=== PATIENT | female | born 1935 | race Caucasian/White ===

== ENCOUNTER 2017-12-01 08:05 | Emergency (ER) | payer MEDICARE ==
[2017-12-01 08:18] VITALS: BP 167/77
--- NOTE | 2017-12-01 09:41 | UC ---
Complaint Female HPI - HPI Summary HPI Summary: In Room Note: The patient is an 82 y/o F presenting to [facility] with a chief complaint of mild dysuria with a warm, burning sensation starting yesterday. She denies fever, suprapubic pain, and back pain. She has had UTIs before, and this feels similar. She reports and overactive bladder, GERD, and HTN for which she takes medication but hasn't taken it yet today. She has not had any hospitalizations including for heart, lungs, or liver. She is allergic to penicillin. Note: Vital signs stable: 167/77 BP, Pulse Ox 100%, Afebrile. Visit history: noncontributory to present complaint. Hx of HTN but did not take medication today. Allergic to penicillin. Nurse's Note: urinary frequency and slight burning with urination. afebrile. Starting last night. - History Of Current Complaint Chief Complaint: UCGU Stated Complaint: PAIN W/ URINATION Time Seen by Provider: 12/01/17 08:28 Hx Obtained From: Patient ?: No Onset/Duration: Sudden Onset Timing: Lasting Hours - starting last night Severity Initially: Mild Severity Currently: Mild Pain Intensity: 0 Pain Scale Used: 0-10 Numeric Character: Burning - and warmness Aggravating Factor(s): Urination Alleviating Factor(s): Nothing Associated Signs And Symptoms: Negative: Fever, Back Pain - Allergies/Home Medications Allergies/Adverse Reactions: Allergies Allergy/AdvReac Type Severity Reaction Status Date / Time Penicillins Allergy Rash Verified 12/01/17 08:18 Home Medications: Home Medications Atenolol [Tenormin 100 MG] 100 mg PO DAILY 12/01/17 [History Confirmed 12/01/17] Calcium/Vitamin D TAB 250/125* [Oscal D TAB 250/125*] 1 tab PO DAILY 12/01/17 [ History Confirmed 12/01/17] Chlorthalidone 25 mg PO DAILY 12/01/17 [History Confirmed 12/01/17] Enalapril TAB* [Vasotec TAB*] 20 mg PO DAILY 12/01/17 [History Confirmed ] Estradiol VAG CM (NF) [Estrace VAG CM (NF)] 1 applic TOPICAL WEEKLY 12/01/17 [ History Confirmed 12/01/17] Folic Acid/Vit B Complex and C [B-Complex with Vit C Caplet] 1 tab PO DAILY [History Confirmed 12/01/17] Glucosam/Chondr/Collagn/Hyalur [Glucosamine & Chondroitin Cap] 1 tab PO DAILY [History Confirmed 12/01/17] Levothyroxine Sodium 75 mcg PO DAILY 12/01/17 [History Confirmed 12/01/17] Mag Carb/Aluminum Hydrox/Algin [Gaviscon Extra Strength Liquid] 1 dose PO ONCE PRN 12/01/17 [History Confirmed 12/01/17] Multivit-Min/Iron/Folic/Lutein [Centrum Silver Women Tablet] 1 tab PO DAILY [History Confirmed 12/01/17] PMH/Surg Hx/FS Hx/Imm Hx Endocrine History: Other Other Endocrine History: NEGATIVE: diabetes Cardiovascular History: Hypertension GI/ History: Gastroesophageal Reflux, Other Other GI/ History: overactive bladder - Surgical History Surgical History: Yes Surgery Procedure, Year, and Place: appendectomy - Family History Known Family History: Positive: Hypertension Negative: Diabetes - Social History Alcohol Use: None Substance Use Type: None Smoking Status (MU): Never Smoked Tobacco Review of Systems Constitutional: Negative Skin: Negative Eyes: Negative ENT: Negative Respiratory: Negative Cardiovascular: Negative Gastrointestinal: Negative Genitourinary: Dysuria - mild with warm sensation Motor: Negative Neurovascular: Negative Musculoskeletal: Negative Neurological: Negative Psychological: Negative All Other Systems Reviewed And Are Negative: Yes - Comments Additional Review of Systems Comments: POSITIVE: mild dysuria with warm sensation; NEGATIVE: fever, suprapubic pain, back pain Physical Exam - Summary Physical Exam Summary: Appearance: The patient is well-appearing, is in no pain distress, and is well- nourished. Eyes: Conjunctiva are clear. ENT: The hearing is grossly normal, the pharynx is normal, and the TMs are normal. There is no muffled or hoarse voice. Neck: The neck is supple and there is no lymphadenopathy. Negative CVA tenderness. Respiratory: The chest is nontender. The lungs are clear, there are normal breath sounds, and there is no respiratory distress. Cardiovascular: Heart is regular rate and rhythm. There is no murmur. Abdomen: The abdomen is soft and nontender. Negative suprapubic tenderness. There is no organomegaly. Bowel sounds: present Musculoskeletal: Strength is intact. The patient moves all extremities. Neurological: The patient is alert. Motor and sensory examination grossly intact. Psychological: The patient displays age appropriate behavior Skin: Negative for rashes. Triage Information Reviewed: Yes Vital Signs: Initial Vital Signs Temp 97.7 F 12/01/17 08:13 Pulse 65 12/01/17 08:13 Resp 18 12/01/17 08:13 BP 167/77 12/01/17 08:13 Pulse Ox 100 12/01/17 08:13 Vital Signs Reviewed: Yes Complaint Female Dx - Course Course Of Treatment: Healthy 82 y/o F with signs, symptoms, and UA consistent with cystitis. A 12 point review of systems was completed and significantly positive for: mild dysuria with warm sensation. The remainder of the review was negative except as stated above in the HPI. She is allergic to penicillin. I will start her on Macrodantin 100mg BID for five days. Patient has been given an antibiotic because of findings on physical examination and health history. The risks and benefits of antibiotic treatment have been discussed and patient has voiced understanding of these risks including the possibility of developing clostridium difficile enterocolitis. She understands the need to follow up for any worsening of her condition. The differential diagnosis is cystitis vs pyelonephritis. Her diagnosis is cystitis. Medications have been included in the original chart and reviewed. Elevated BP but has current hypertension diagnosis and treatment. Patient will follow up with PCP in 1-4 weeks. - Differential Dx/Diagnosis Differential Diagnosis/HQI/PQRI: Other - cystitis versus pyelonephritis Provider Diagnoses: cystitis Discharge - Sign-Out/Discharge Documenting (check all that apply): Patient Departure - Patient will be discharged home. All imaging exams completed and their final reports reviewed: No Studies - Discharge Plan Condition: Stable Disposition: HOME Prescriptions: Nitrofurantoin Macrocrystals* [Macrodantin*] 100 mg PO BID 5 Days #10 cap MDD 2 Patient Education Materials: Urinary Tract Infection in Women (ED) Referrals: Lynne Olivo NP [Primary Care Provider] - 3 Days Additional Instructions: WE DISCUSSED: You have a urinary tract infection. There is no evidence at this infection has traveled here kidneys. I did continue an antibiotic, not penicillin, to take twice a day for 5 days. Should be getting better in the next day or 2. If you're not improving recheck with us or with your doctor. If you develop any increased pain, back pain or temperature, or if you cannot urinate, go to the emergency department. - Billing Disposition and Condition Condition: STABLE Disposition: Home - Attestation Statements Document Initiated by Maria E: Yes Documenting Scribe: Clotilde Duarte Provider For Whom Maria E is Documenting (Include Credential): Dr. Cam Rome MD Scribe Attestation: I, Clotilde Duarte scribed for Dr. Cam Rome MD on 12/01/17 at 1125. Scribe Documentation Reviewed: Yes Provider Attestation: The documentation as recorded by the Clotilde farris accurately reflects the service I personally performed and the decisions made by me, Dr. Cam Rome MD
--- NOTE | 2017-12-02 16:49 | UC ---
- Progress Note Progress Note: 12/02/2017 Urine culture negative, No growth. Pt Rx Nitrofurantoin PO. Please call back Pt and notified the result and advised to stop medication. thank you Yaneth Walter PA-C Discharge - Sign-Out/Discharge Documenting (check all that apply): Patient Departure - D/c home All imaging exams completed and their final reports reviewed: No Studies - Discharge Plan Condition: Stable Disposition: HOME Prescriptions: Nitrofurantoin Macrocrystals* [Macrodantin*] 100 mg PO BID 5 Days #10 cap MDD 2 Patient Education Materials: Urinary Tract Infection in Women (ED) Referrals: Lynne Olivo NP [Primary Care Provider] - 3 Days Additional Instructions: WE DISCUSSED: You have a urinary tract infection. There is no evidence at this infection has traveled here kidneys. I did continue an antibiotic, not penicillin, to take twice a day for 5 days. Should be getting better in the next day or 2. If you're not improving recheck with us or with your doctor. If you develop any increased pain, back pain or temperature, or if you cannot urinate, go to the emergency department. - Billing Disposition and Condition Condition: STABLE Disposition: Home
== END 2017-12-01 09:51 | disposition home or self-care (01) ==
LOC: UCEAST 08:05
DX: N30.90 Cystitis, unspecified without hematuria (principal); I10 Essential (primary) hypertension; Z88.0 Allergy status to penicillin; Z79.899 Other long term (current) drug therapy
CPT/HCPCS: 81003; 87086; 99202; G0463

== ENCOUNTER 2020-09-03 17:01 | Observation (INO) ==
[2020-09-03] MEDS ORDERED: NS 0.9% 1000 ml BAG 1,000 ML IV ONE (17:02)
[2020-09-03 17:27] LABS: ABS Eosinophils 0.2 10^3/ul (0-0.6); ABS Monocytes 0.9 10^3/ul (0-0.8); ABS Neutrophils 12.4 10^3/ul (1.5-7.7); Eosinophil % 1.2 %; Hematocrit 33 % (35-47); Hemoglobin 11.5 g/dL (12.0-16.0); Lymphocyte % 6.9 %; Mean Corpuscular HGB Conc 35 g/dL (31-36); Mean Corpuscular Hemoglobin 30 pg (27-31); Mean Corpuscular Volume 86 fL (80-97); Mean Platelet Volume 6.6 fL (7.4-10.4); Platelet Count 644 10^3/uL (150-450); Red Blood Count 3.87 10^6 /uL (3.70-4.87); Red Cell Distribution Width 14 % (10-15); White Blood Count 14.5 10^3/uL (3.5-10.8)
[2020-09-03] MEDS ORDERED: Aspirin EC 325 mg TAB.EC PO ONE (17:35)
[2020-09-03 17:36] LABS: INR 1.03 (0.82-1.09)
[2020-09-03 17:45] LABS: Albumin/Globulin Ratio 1.6 (1-3); Calcium 9.2 mg/dL (8.6-10.3); EGFR African American 53.9 (>60); EGFR Non-African American 44.5 (>60); Globulin 2.5 g/dL (2-4); HDL Cholesterol 54.3 mg/dL; Potassium 3.5 mmol/L (3.5-5.0); Total Bilirubin 0.6 mg/dL (0.2-1.0); Total Protein 6.5 g/dL (6.4-8.9)
[2020-09-03 17:46] LABS: Troponin I 0.01 ng/mL (<0.03)
[2020-09-03] MEDS ORDERED: Iodixanol (CONTRAST) 320 MG/ML 100 ML SDV IV ONE (17:51)
[2020-09-04] MEDS: Enoxaparin 30 MG/0.3 ML SYR SUBCUT SCH ×2 (01:10→21:51)
[2020-09-04 07:48] LABS: Urine Appearance Clear; Urine Bilirubin Negative (Negative); Urine Blood Negative (Negative); Urine Color Yellow; Urine Glucose Negative (Negative); Urine Ketones Negative (Negative); Urine Nitrite Negative (Negative); Urine Protein Negative (Negative); Urine Specific Gravity 1.012 (1.002-1.030); Urine Urobilinogen Negative (Negative)
[2020-09-04 08:15] LABS: ABS Basophils 0.1 10^3/ul (0-0.2); ABS Eosinophils 0.2 10^3/ul (0-0.6); ABS Monocytes 0.8 10^3/ul (0-0.8); ABS Neutrophils 8.3 10^3/ul (1.5-7.7); Eosinophil % 1.9 %; Hematocrit 33 % (35-47); Hemoglobin 11.4 g/dL (12.0-16.0); Lymphocyte % 9.6 %; Mean Corpuscular HGB Conc 35 g/dL (31-36); Mean Corpuscular Hemoglobin 30 pg (27-31); Mean Corpuscular Volume 87 fL (80-97); Mean Platelet Volume 6.6 fL (7.4-10.4); Platelet Count 590 10^3/uL (150-450); Red Blood Count 3.81 10^6 /uL (3.70-4.87); Red Cell Distribution Width 15 % (10-15); White Blood Count 10.4 10^3/uL (3.5-10.8)
[2020-09-04] MEDS: Aspirin EC 81 mg TAB.EC (enteric coated) PO SCH (08:17)
[2020-09-04 08:34] LABS: EGFR African American 67.8 (>60); Magnesium 1.4 mg/dL (1.9-2.7); Phosphorus 2.7 mg/dL (2.5-5.0); Potassium 3.2 mmol/L (3.5-5.0)
[2020-09-04] MEDS ORDERED: Potassium Chlor 20 meq TAB.ER PO ONE ×2 (13:22→17:30)
[2020-09-04] MEDS ORDERED: Magnesium Sulf 4 GM/100 ML IV 4,000 MG/100 ML BAG IVPB ONE (13:30)
[2020-09-04] MEDS ORDERED: hydrALAZINE 20 mg/ml 1 ML Vial IV IV SLOW PU PRN (15:49)
[2020-09-04 20:42] LABS: EGFR African American 57.9 (>60); EGFR Non-African American 47.8 (>60); Magnesium 2.7 mg/dL (1.9-2.7); Potassium 3.9 mmol/L (3.5-5.0)
[2020-09-05 09:49] LABS: ABS Basophils 0.1 10^3/ul (0-0.2); ABS Eosinophils 0.3 10^3/ul (0-0.6); ABS Monocytes 0.6 10^3/ul (0-0.8); ABS Neutrophils 4.8 10^3/ul (1.5-7.7); Eosinophil % 3.8 %; Hematocrit 34 % (35-47); Hemoglobin 11.8 g/dL (12.0-16.0); Lymphocyte % 14.6 %; Mean Corpuscular HGB Conc 35 g/dL (31-36); Mean Corpuscular Hemoglobin 30 pg (27-31); Mean Corpuscular Volume 87 fL (80-97); Mean Platelet Volume 6.7 fL (7.4-10.4); Platelet Count 673 10^3/uL (150-450); Red Cell Distribution Width 15 % (10-15); White Blood Count 6.6 10^3/uL (3.5-10.8)
[2020-09-05 10:05] LABS: Calcium 9.2 mg/dL (8.6-10.3); EGFR African American 61.1 (>60); EGFR Non-African American 50.5 (>60); Magnesium 2.1 mg/dL (1.9-2.7); Potassium 3.7 mmol/L (3.5-5.0)
[2020-09-05] MEDS: Aspirin EC 81 mg TAB.EC (enteric coated) PO SCH (10:14)
[2020-09-05 11:46] VITALS: BP 170/70
== END 2020-09-05 13:55 | disposition home or self-care (01) ==
LOC: ED 17:01 → INTOOBSV 20:02 → MEDTELE 20:02
PROVIDERS: ADMIT Student in an Organized Health Care Education/Training Program; ATTEND Internal Medicine

== ENCOUNTER 2024-04-01 21:41 | Observation (INO) ==
[2024-04-01] MEDS ORDERED: LORazepam 2 mg VIAL 1 ml ONE (22:20)
[2024-04-01] MEDS ORDERED: Lorazepam PYXIS KEY PRN (22:28)
[2024-04-01] MEDS: Midazolam 2 mg/2 ml VIAL 1 mg/ml 2 ml VIAL (2 mg) IM ONE (22:29)
[2024-04-01] MEDS: LORazepam 2 mg VIAL 1 ml IM ONE (22:30)
[2024-04-01 23:07] LABS: ABS Eosinophils 0.1 10^3/uL (0.0-0.5); ABS Lymphocytes 0.5 10^3/uL (1.0-4.8); ABS Monocytes 0.7 10^3/uL (0.0-0.9); ABS Neutrophils 2.8 10^3/uL (1.5-7.6); Eosinophil % 1.6 %; Hematocrit 29.1 % (35-45); Hemoglobin 9.9 g/dL (11.5-14.3); Lymphocyte % 11.7 %; Mean Corpuscular Hemoglobin 35.2 pg (27-33); Mean Corpuscular Hgb Conc 34.2 g/dL (31-36); Mean Corpuscular Volume 102.8 fL (80-97); Mean Platelet Volume 7.1 fL (7.5-11.2); Nucleated Red Blood Cells % 0.1 %/100WBC (0.0-0.8); Platelet Count 434 10^3/uL (150-450); Red Blood Count 2.83 10^6/uL (3.63-4.92); Red Cell Distribution Width 14.4 % (12-17); White Blood Count 4.1 10^3/uL (3.8-11.8)
[2024-04-01 23:42] LABS: Urine Appearance Clear; Urine Bilirubin Negative (Negative); Urine Blood Negative (Negative); Urine Color Light-Yellow; Urine Glucose Negative (Negative); Urine Ketones Negative (Negative); Urine Nitrite Negative (Negative); Urine Protein Trace (Negative); Urine Specific Gravity 1.015 (1.002-1.030); Urine Urobilinogen Negative (Negative)
[2024-04-01 23:43] LABS: Urine Bacteria Absent /HPF (Absent); Urine Red Blood Cell Trace(0-2/hpf) /HPF (0-Trace); Urine White Blood Cell Trace(0-5/hpf) /HPF (0-Trace)
[2024-04-02 00:06] LABS: ALT 20 U/L (7-52); Albumin 3.9 g/dL (3.5-5.7); Albumin/Globulin Ratio 1.6 (1-3); Alkaline Phosphatase 62 U/L (35-149); Anion Gap 8 mmol/L (2-16); Blood Urea Nitrogen 22 mg/dL (6-24); CO2 Carbon Dioxide 32 mmol/L (22-32); Calcium 8.8 mg/dL (8.6-10.3); Chloride 93 mmol/L (101-111); Creatinine, Serum 1.14 mg/dL (0.51-0.95); Globulin 2.4 g/dL (2-4); Glucose 105 mg/dL (70-100); Sodium 133 mmol/L (135-145); Total Bilirubin 0.7 mg/dL (0.2-1.0); Total Protein 6.3 g/dL (6.4-8.9); eGFR CKD-EPI 46.6 (>60)
[2024-04-02 01:35] LABS: AST Redraw 22 U/L (13-39); Potassium Redraw 2.6 mmol/L (3.5-5.0)
[2024-04-02 02:04] LABS: Magnesium 1.4 mg/dL (1.9-2.7)
[2024-04-02] MEDS: NS 0.9% 1000 ml BAG 1,000 ML IV ONE (03:20)
[2024-04-02] MEDS: KCL 20 MEQ/100 ML IVPREMIX 20 MEQ/100 ML BAG IV SCH (03:21)
[2024-04-02] MEDS: Magnesium Sulfate 2 gm BAG 2 GM/50 ML BAG IVPB ONE (06:52)
[2024-04-02] MEDS ORDERED: Lorazepam PYXIS KEY PRN (07:16)
[2024-04-02] MEDS: Potassium Chlor 20 meq TAB.ER PO ONE (07:17)
[2024-04-02] MEDS: Haloperidol 5 mg/ml SDV IV/IM 5 MG/ML AMP IV SLOW PU ONE (07:20)
[2024-04-02] MEDS: Magnesium Sulf 4 GM/100 ML IV 4,000 MG/100 ML BAG IVPB ONE (10:56)
[2024-04-02 12:20] LABS: % Iron Saturation 12 % (15-55); .Transferrin 216 mg/dL (203-362); Iron 37 ug/dL (50-212); Total Iron Binding Capacity 302 mcg/dL (250-450); Unsaturated Iron Binding 265 ug/dL
[2024-04-02 12:42] LABS: Ferritin 85.1 ng/mL (11-307)
[2024-04-02 12:45] LABS: Folate > 20.00 ng/mL (5.90-24.80)
[2024-04-02 12:46] LABS: Vitamin B12 1009 pg/mL (180-914)
[2024-04-02] MEDS: LORazepam 2 mg VIAL 1 ml IV PUSH ONE (22:01)
[2024-04-02] MEDS: Enoxaparin 30 MG/0.3 ML SYR SUBCUT SCH (22:28)
[2024-04-03] MEDS: Calcium Carb (TUMS) 500 mg CHEW TAB PO PRN (01:14)
[2024-04-03 05:35] LABS: ABS Basophils 0.1 10^3/uL (0.0-0.1); ABS Eosinophils 0.1 10^3/uL (0.0-0.5); ABS Lymphocytes 0.7 10^3/uL (1.0-4.8); ABS Monocytes 0.7 10^3/uL (0.0-0.9); ABS Neutrophils 4.1 10^3/uL (1.5-7.6); Eosinophil % 1.7 %; Hematocrit 27.8 % (35-45); Hemoglobin 9.7 g/dL (11.5-14.3); Lymphocyte % 13.1 %; Mean Corpuscular Hgb Conc 34.9 g/dL (31-36); Mean Corpuscular Volume 103.2 fL (80-97); Mean Platelet Volume 6.9 fL (7.5-11.2); Platelet Count 404 10^3/uL (150-450); Red Cell Distribution Width 14.7 % (12-17); White Blood Count 5.7 10^3/uL (3.8-11.8)
[2024-04-03 06:10] LABS: Albumin 3.5 g/dL (3.5-5.7); Albumin/Globulin Ratio 1.7 (1-3); C Reactive Protein 3.55 mg/L (<8.01); Calcium 8.5 mg/dL (8.6-10.3); Creatinine, Serum 0.95 mg/dL (0.51-0.95); Globulin 2.1 g/dL (2-4); Magnesium 2.2 mg/dL (1.9-2.7); Potassium 3.7 mmol/L (3.5-5.0); Total Bilirubin 0.7 mg/dL (0.2-1.0); Total Protein 5.6 g/dL (6.4-8.9)
[2024-04-03 06:25] LABS: TSH Ultra Thyroid Stim Horm 4.27 mcIU/mL (0.34-5.60)
[2024-04-03] MEDS: Aspirin EC 81 mg TAB.EC (enteric coated) PO SCH (08:38)
[2024-04-04 06:40] LABS: Hemoglobin 10.4 g/dL (11.5-14.3); Mean Corpuscular Hemoglobin 36.6 pg (27-33); Mean Corpuscular Hgb Conc 35.7 g/dL (31-36); Mean Corpuscular Volume 102.7 fL (80-97); Mean Platelet Volume 6.7 fL (7.5-11.2); Platelet Count 416 10^3/uL (150-450); Red Blood Count 2.83 10^6/uL (3.63-4.92); Red Cell Distribution Width 14.5 % (12-17); White Blood Count 5.8 10^3/uL (3.8-11.8)
[2024-04-04 07:06] LABS: Calcium 8.6 mg/dL (8.6-10.3); Creatinine, Serum 0.97 mg/dL (0.51-0.95); Magnesium 1.5 mg/dL (1.9-2.7); Potassium 3.7 mmol/L (3.5-5.0); eGFR CKD-EPI 56.6 (>60)
[2024-04-04] MEDS: Polyethylene Glycol 3350 17 GM PACKET PO PRN (08:54)
[2024-04-04] MEDS: Senna TAB 8.6 mg TAB PO PRN (08:55)
[2024-04-04] MEDS: Magnesium Sulf 4 GM/100 ML IV 4,000 MG/100 ML BAG IVPB ONE (08:57)
[2024-04-04] MEDS ORDERED: Calcium Carb (TUMS) 500 mg CHEW TAB PO PRN (18:05)
[2024-04-04] MEDS: CMCS:Lubiprostone 24 MCG CAP (NF) PO SCH (18:45)
[2024-04-05 07:14] LABS: Hematocrit 29.1 % (35-45); Hemoglobin 10.2 g/dL (11.5-14.3); Mean Corpuscular Hemoglobin 36.2 pg (27-33); Mean Corpuscular Hgb Conc 35.1 g/dL (31-36); Mean Corpuscular Volume 103.2 fL (80-97); Mean Platelet Volume 7.1 fL (7.5-11.2); Platelet Count 422 10^3/uL (150-450); Red Blood Count 2.82 10^6/uL (3.63-4.92); Red Cell Distribution Width 14.4 % (12-17); White Blood Count 4.5 10^3/uL (3.8-11.8)
[2024-04-05 07:34] LABS: Calcium 8.6 mg/dL (8.6-10.3); Creatinine, Serum 1.03 mg/dL (0.51-0.95); Magnesium 1.9 mg/dL (1.9-2.7); Potassium 3.7 mmol/L (3.5-5.0); eGFR CKD-EPI 52.6 (>60)
[2024-04-05] MEDS: Magnesium Sulfate IV 1GM/100ML 1 GM/100 ML BAG IV ONE (09:07)
[2024-04-05] MEDS: CMCS:Lubiprostone 24 MCG CAP (NF) PO SCH (09:09)
[2024-04-05] MEDS: Haloperidol 5 mg/ml SDV IV/IM 5 MG/ML AMP IM PRN (23:42)
[2024-04-06 08:55] LABS: Calcium 9.1 mg/dL (8.6-10.3); Creatinine, Serum 1.09 mg/dL (0.51-0.95); Magnesium 1.7 mg/dL (1.9-2.7); Potassium 3.9 mmol/L (3.5-5.0); eGFR CKD-EPI 49.2 (>60)
[2024-04-07 06:25] LABS: Hematocrit 30.3 % (35-45); Hemoglobin 10.7 g/dL (11.5-14.3); Mean Corpuscular Hgb Conc 35.2 g/dL (31-36); Mean Corpuscular Volume 102.3 fL (80-97); Mean Platelet Volume 7.1 fL (7.5-11.2); Platelet Count 454 10^3/uL (150-450); Red Blood Count 2.96 10^6/uL (3.63-4.92); Red Cell Distribution Width 14.5 % (12-17); White Blood Count 4.9 10^3/uL (3.8-11.8)
[2024-04-07 06:41] LABS: Calcium 9.2 mg/dL (8.6-10.3); Creatinine, Serum 1.08 mg/dL (0.51-0.95); Magnesium 1.6 mg/dL (1.9-2.7); Potassium 3.9 mmol/L (3.5-5.0); eGFR CKD-EPI 49.7 (>60)
[2024-04-07] MEDS: Magnesium Sulf 4 GM/100 ML IV 4,000 MG/100 ML BAG IVPB ONE (08:39)
[2024-04-08] MEDS: Ondansetron 4 mg VIAL 2 MG/ML 2 ml VIAL IV PRN (02:21)
[2024-04-08 06:36] LABS: Hematocrit 30.5 % (35-45); Hemoglobin 10.8 g/dL (11.5-14.3); Mean Corpuscular Hemoglobin 36.2 pg (27-33); Mean Corpuscular Hgb Conc 35.3 g/dL (31-36); Mean Corpuscular Volume 102.3 fL (80-97); Mean Platelet Volume 6.9 fL (7.5-11.2); Platelet Count 463 10^3/uL (150-450); Red Blood Count 2.98 10^6/uL (3.63-4.92); Red Cell Distribution Width 14.3 % (12-17); White Blood Count 3.7 10^3/uL (3.8-11.8)
[2024-04-08 07:04] LABS: Calcium 8.6 mg/dL (8.6-10.3); Creatinine, Serum 0.99 mg/dL (0.51-0.95); Magnesium 2.1 mg/dL (1.9-2.7); Potassium 4.2 mmol/L (3.5-5.0); eGFR CKD-EPI 55.2 (>60)
[2024-04-08 10:26] VITALS: BP 168/68
[2024-04-10 15:12] LABS: TB1 Ag minus Nil Result -0.01 IU/mL; TB2 Ag minus Nil Result 0.04 IU/mL
[2024-04-10 15:13] LABS: QuantiferonTb Gold Plus Result Negative (Negative)
== END 2024-04-08 15:20 ==
LOC: ED 21:41 → EDHOLD 21:41 → SUATTDRO 04-02 10:26 → MED 04-02 17:48
PROVIDERS: ADMIT Internal Medicine; ATTEND Internal Medicine